=== PATIENT | female | born 1985 | race Caucasian/White ===

== ENCOUNTER 2017-08-17 16:39 | Emergency (ER) | payer MEDICAID ==
[2017-08-17 16:39] VITALS: BMI 25.7
[2017-08-17 16:46] VITALS: BP 118/68; PULSE 83; RESP 16; TEMP 98.4; O2SAT 100
--- NOTE | 2017-08-17 17:51 | RAD ---
PROCEDURE: Right Foot Radiographs. HISTORY: FB, glass in foot COMPARISON: None. FINDINGS: BONES: Bone alignment and mineralization are normal. There is no acute fracture or bone destruction. JOINTS: Normal. SOFT TISSUES: There is mild plantar soft tissue welling in the forefoot. No radiopaque foreign body. OTHER FINDINGS: None. IMPRESSION: No acute fracture or dislocation. Mild plantar soft tissue swelling in the forefoot. No evidence of radiopaque foreign body.
--- NOTE | 2017-08-17 19:03 | ED PDOC ---
Lower Extremity Pain/Injury Time Seen by Provider: 08/17/17 17:04 Chief Complaint (Nursing): Lower Extremity Problem/Injury Chief Complaint (Provider): Right foot pain History Per: Patient History/Exam Limitations: no limitations Onset/Duration Of Symptoms: Days (2) Current Symptoms Are (Timing): Still Present Additional Complaint(s): 32yo female, presents to ER for evaluation of right foot discomfort for the past 2 days. Patient states she broke a piece of glass in her home 2 days ago and thought she cleared everything however for the past two days, every time she attempts to walk she feels a foreign body in her foot. She denies any swelling, drainage from her foot. She has no other complaints. Past Medical History Reviewed: Historical Data, Nursing Documentation, Vital Signs Vital Signs: Last Vital Signs Temp 98.4 F 08/17/17 16:43 Pulse 83 08/17/17 16:43 Resp 16 08/17/17 16:43 BP 118/68 08/17/17 16:43 Pulse Ox 100 08/17/17 16:43 - Medical History PMH: No Chronic Diseases - Surgical History Surgical History: Cholecystectomy, Tonsillectomy - Family History Family History: States: No Known Family Hx - Home Medications Home Medications: Ambulatory Orders Medication Instructions Recorded Oxycodone HCl/Acetaminophen 1 each PO Q6 #10 tablet 08/27/15 [Oxycodone-Acetaminophen 5-325] Cephalexin [cephalexin] 500 mg PO BID #14 cap 08/17/17 - Allergies Allergies/Adverse Reactions: Allergies Allergy/AdvReac Type Severity Reaction Status Date / Time morphine Allergy ITCHING Verified 08/17/17 16:43 Review of Systems ROS Statement: Except As Marked, All Systems Reviewed And Found Negative Musculoskeletal: Positive for: Foot Pain (foreign object in right foot) Physical Exam - Reviewed Nursing Documentation Reviewed: Yes Vital Signs Reviewed: Yes - Physical Exam Appears: Positive for: Non-toxic, No Acute Distress Head Exam: Positive for: ATRAUMATIC, NORMAL INSPECTION, NORMOCEPHALIC Skin: Positive for: Normal Color Eye Exam: Positive for: Normal appearance Neck: Positive for: Supple Cardiovascular/Chest: Positive for: Regular Rate, Rhythm Respiratory: Positive for: Normal Breath Sounds. Negative for: Respiratory Distress Pulses-Dorsalis Pedis (L): 2+ Pulses-Dorsalis Pedis (R): 2+ Extremity: Positive for: Normal ROM, Other (puncture wound noted to right mid- foot on plantar aspect ). Negative for: Tenderness, Deformity, Swelling Neurologic/Psych: Positive for: Alert, Oriented. Negative for: Motor/Sensory Deficits - ECG O2 Sat by Pulse Oximetry: 100 (RA) Pulse Ox Interpretation: Normal Medical Decision Making Medical Decision Making: Impression: Foreign object in right foot Plan: -- XR Right foot -- Podiatry consult Scribe Attestation: Documented by Pao Mckeon acting as a scribe for SHARONA Sharma Provider Scribe Attestation: All medical record entries made by the Scribe were at my direction and personally dictated by me. I have reviewed the chart and agree that the record accurately reflects my personal performance of the history, physical exam, medical decision making, and the department course for this patient. I have also personally directed, reviewed, and agree with the discharge instructions and disposition. Disposition - Clinical Impression Clinical Impression: Foot injury - Patient ED Disposition Is Patient to be Admitted: No Counseled Patient/Family Regarding: Diagnosis, Need For Followup - Disposition Disposition: Routine/Home Disposition Time: 19:21 Condition: GOOD Prescriptions: Cephalexin [cephalexin] 500 mg PO BID #14 cap Instructions: Foreign Body in Skin Forms: Share0 (Lao)
--- NOTE | 2017-08-17 21:42 | CP.PCM.CON ---
History of Present Illness - History of Present Illness History of Present Illness: Podiaty consult note: Dr. Elise 32 year old female patient with no significant PMHx was seen and evaluated at bedside for right plantar foot pain secondary to a presence of a foreign body. Patient reports that she stepped on a broken picture frame glass about a week ago and a little piece of a glass went inside her foot. Patient's reports that he took out a piece of the glass with the tweezers after the injury. Patient reports that the pain at the site of the injury increased recently and decided to come to the ED today. Patient states that she was not able to walk on her foot today because of the increasing pain. Patient denies of taking any pain medications for the pain. Denies of having any recent F/N/V/C /SOB/CP/headache. Denies of having any other pedal complains at this time. PMHx: Denies PSHx: Allergies: Morphine SocialHx: Denies smoking, EtOH or illicit drug usage Review of Systems - Constitutional Constitutional: As Per HPI Past Patient History - Past Social History Smoking Status: Heavy Smoker > 10 Cigarettes Daily - PSYCHIATRIC Hx Substance Use: No - SURGICAL HISTORY Hx Cholecystectomy: Yes Hx Tonsillectomy: Yes - ANESTHESIA Hx Anesthesia: Yes Hx Anesthesia Reactions: No Meds Home Medications: Home Medication List Medication Instructions Recorded Confirmed Type Cephalexin [cephalexin] 500 mg PO BID #14 cap 08/17/17 Rx Allergies/Adverse Reactions: Allergies Allergy/AdvReac Type Severity Reaction Status Date / Time morphine Allergy ITCHING Verified 08/17/17 16:43 Physical Exam - Constitutional Appears: Well, Non-toxic, No Acute Distress - Head Exam Head Exam: ATRAUMATIC - Extremities Exam Additional comments: Right LE focused exam: VASC: DP/PT pulses are palpable 2/4, Cap refill time: < 3 sec to all digits, Temp gradient: warm to cool from proximal to distal, no pitting or non-pitting edema noted DERM: small approx. 0.1 cm x 0.1 cm x <0.1 cm opening noted on the plantar proximal midfoot superior to the central band of plantar fascia, no surrounding erythema, no active drainage, site appears coagulated/healed at the initial inspection, no tunneling, no undermining, no probe to bone, no clinical suspicion of active infection NEURO: Protective sensation grossly intact ORTHO: Pain on palpation of the injury site as well as surrounding the site, no pain on palpation of the plantar medial and lateral calcaneal tubercle - Neurological Exam Neurological exam: Alert, Oriented x3 - Psychiatric Exam Psychiatric exam: Normal Affect, Normal Mood Results - Vital Signs Recent Vital Signs: Last Vital Signs Temp 98.4 F 08/17/17 16:43 Pulse 83 08/17/17 16:43 Resp 16 08/17/17 16:43 BP 118/68 08/17/17 16:43 Pulse Ox 100 08/17/17 19:26 Assessment & Plan - Assessment and Plan (Free Text) Assessment: 32 year old female patient evaluated for right plantar foot pain secondary to a presence of a foreign body. Plan: Patient seen and evaluated Discussed plan with attending Dr. Gosia Mccauley and charts reviewed X-rays of the right foot ordered/reviewed - Soft tissue density appears within normal limit, no foreign body presence noted at the puncture site, no acute body pathology noted Educated patient may need to go to the OR at a later time if unable to remove the foreign body from the site 9 cc of 1% lidocaine with epi used to give a tibial nerve block Sterile technique used to prep the injured site and #15 blade used to debride and remove the foreign body - small spicules (x2) of glass removed from the site Site flushed with sterile saline and dressed using bacitracin, DSD Educated patient keep the area clean and apply a dressing for the next week until healed Rx: Keflex 500 mg x 7 days Educated to follow up in the podiatry clinic Thank you for the podiatry consult and allowing to take part in a patient care - Date & Time Date: 08/17/17 Time: 18:45
== END 2017-08-17 20:05 | disposition home or self-care (01) ==
LOC: H.ER 16:39
DX: M79.5 Residual foreign body in soft tissue (principal); W45.8XXA Other foreign body or object entering through skin, initial encounter; W25.XXXA Contact with sharp glass, initial encounter; F17.210 Nicotine dependence, cigarettes, uncomplicated

== ENCOUNTER 2018-09-19 15:17 | Inpatient (IN) | payer MEDICAID, OTHER ==
[2018-09-19 15:17] VITALS: BMI 25.7
--- NOTE | 2018-09-19 15:58 | ED PDOC ---
HPI: Psych/Substance Abuse Time Seen by Provider: 09/19/18 15:35 Chief Complaint (Nursing): Psychiatric Evaluation Chief Complaint (Provider): Psychiatric Evaluation History Per: Patient History/Exam Limitations: no limitations Onset/Duration Of Symptoms: Days (x1 day) Current Symptoms Are (Timing): Still Present Additional Complaint(s): Patient is a 33 year old female with no past medical history, who presents by EMS for a psychiatric evaluation. Patient attempted to commit suicide on Tuesday (x1 day ago) by snorting and smoking x15 packs of heroine. Patient states she woke up thinking it was still the same day, Tuesday. She states she has tried to kill herself before and the reason was because her kids were taken away from her. After waking up, she called her sister, who called her brother who ended up notifying EMS. Patient reports she did fall, unsure how, but woke up on the ground, she hit her head on the table. she also reports numbness in her legs mos tly left, as if she cannot feel it to put walk. She also has pain to her right forearm and neck. She reports the feel like "throbbing" and that she can "feel it but can't feel it." Pt denies headache, changes in vision, chest pain, abdominal pain, nausea or vomiting. PMD: no provider LMP: current Past Medical History Reviewed: Historical Data, Nursing Documentation, Vital Signs Vital Signs: Last Vital Signs Temp 98.6 F 09/19/18 15:26 Pulse 95 H 09/19/18 15:26 Resp 18 09/19/18 15:26 BP 130/97 H 09/19/18 15:26 Pulse Ox 100 09/19/18 15:26 - Medical History PMH: No Chronic Diseases - Surgical History Surgical History: Cholecystectomy, Tonsillectomy - Family History Family History: States: Unknown Family Hx - Social History Current smoker - smoking cessation education provided: Yes Alcohol: Occasional Drugs: Cocaine, Opiates - Home Medications Home Medications: Ambulatory Orders Medication Instructions Recorded Oxycodone HCl/Acetaminophen 1 each PO Q6 #10 tablet 08/27/15 [Oxycodone-Acetaminophen 5-325] Cephalexin [cephalexin] 500 mg PO BID #14 cap 08/17/17 - Allergies Allergies/Adverse Reactions: Allergies Allergy/AdvReac Type Severity Reaction Status Date / Time morphine Allergy ITCHING Verified 08/17/17 16:43 Review of Systems ROS Statement: Except As Marked, All Systems Reviewed And Found Negative Musculoskeletal: Positive for: Neck Pain, Arm Pain (right forearm ) Neurological: Positive for: Numbness Psych: Positive for: Suicidal ideation Physical Exam - Reviewed Nursing Documentation Reviewed: Yes Vital Signs Reviewed: Yes - Physical Exam Comments: GENERAL APPEARANCE: Patient is awake, alert, oriented x 3, in no acute distress. SKIN: Warm, dry; (-) cyanosis HEAD: (+) laceration to right eyebrow with healing scab and mild swelling, no erythema or drainage, (-) scalp swelling, (-) scalp tenderness. EYES: (-) conjunctival pallor, (-) scleral icterus, (-) nystagmus. ENMT: Mucous membranes moist. Nasal bridge: (-) tenderness. (-) epistaxis. (- ) oral trauma, (-) facial bone tenderness. Ears: (-) fluid, (-) hemotympanum. Airway patent: (-) stridor. NECK: Trachea with (-) deviation, (+) very mild midline C6-C7 cervical tenderness, (+) paracervical tenderness, (-) step-off, (-) limitation on ROM. HEART AND CARDIOVASCULAR: (-) irregularity; (-) murmur, (-) gallop. CHEST AND RESPIRATORY: (-)chest wall tenderness (-)crepitus (-)ecchymosis (-) rales, (-) rhonchi, (-) wheezes; breath sounds equal. ABDOMEN: Soft, (-) distention, (-) tenderness, (-) guarding. BACK: (-) midline tenderness, (+)FROM NEURO AND PSYCH: Mental status as above. EXTREMITIES:pulses +2 of all extremities, capillary refill <2 sec of all extremities , all extremities NVI, Strength 5/5 and Full ROM for RUE, RLE, and LUE. Decreased ROM and strength on LLE. 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 Pupils equal and reactive; EOMI; lockstitch front maker 2-12 intact, (-) facial asymmetry; tongue and uvula midline. Strength and DTRs symmetric - Laboratory Results Result Diagrams: 09/19/18 16:31 09/19/18 16:31 - ECG ECG Rhythm: Positive for: Normal QRS, Normal ST Segment, Sinus Rhythm. Negative for: Atrial Fibrillation, Ventricular Fibrillation, ST/T Changes Rate: 75 O2 Sat by Pulse Oximetry: 100 (RA) Pulse Ox Interpretation: Normal Medical Decision Making Medical Decision Making: Time: 1549 Plan: --CT cervical spine without contrast --CT head without contrast --EKG --acetaminophen --Alcohol serum --CMP --Urine drug screen --ED urine --Urinalysis --CBC with differential --Chest xray 2 views --1:1 observation --Glucose, Blood --Right forearm xray --Left hip xray 4 views Time: 1604 --Patient was seen by Dr. Bertrand, who agrees with assessment and plan. --Dr. Bertrand recommends to add Tylenol, Salicylate, and Heel xray. 18:35 CT and Xray reports/results are back and reviewed by me, no acute fractures, active disease, no intracranial hemorrhage PROCEDURE: Left Hip X-ray Radiographs. HISTORY: fall pain COMPARISON: None. TECHNIQUE: 2 views obtained. FINDINGS: BONES: Normal. No fracture. JOINTS: Normal. SOFT TISSUES: Normal. OTHER FINDINGS: Intrauterine contraceptive device (IUD) identified IMPRESSION: Normal left hip radiographs. PROCEDURE: Radiographs of the left calcaneus/hindfoot. HISTORY: fall pain COMPARISON: None available. TECHNIQUE: Frontal and lateral radiographs of the calcaneus. FINDINGS: No fracture or joint dislocation. No focal lesion. No calcaneal spur. IMPRESSION: Unremarkable radiographs of the left calcaneus /hindfoot. COMPARISON: None available. TECHNIQUE: Frontal and lateral views obtained. 2 views obtained. FINDINGS: BONES: No fracture or destructive lesion. JOINT SPACES: Unremarkable. OTHER FINDINGS: None. IMPRESSION: Unremarkable radiographs of the right forearm. FINDINGS: LUNGS: No active pulmonary disease. PLEURA: No significant pleural effusion identified. No pneumothorax apparent. CARDIOVASCULAR: No aortic atherosclerotic calcification present. Normal cardiac size. No pulmonary vascular congestion. OSSEOUS STRUCTURES: No significant abnormalities. VISUALIZED UPPER ABDOMEN: Normal. OTHER FINDINGS: None. IMPRESSION: No active disease. PROCEDURE: CT HEAD WITHOUT CONTRAST. HISTORY: fall COMPARISON: None available. TECHNIQUE: Axial computed tomography images were obtained through the head/brain without intravenous contrast. Radiation dose: Total exam DLP = 788.36 mGy-cm. This CT exam was performed using one or more of the following dose reduction techniques: Automated exposure control, adjustment of the mA and/or kV according to patient size, and/or use of iterative reconstruction technique. FINDINGS: HEMORRHAGE: No intracranial hemorrhage. BRAIN: No mass effect or edema. No atrophy or chronic microvascular ischemic changes. VENTRICLES: No hydrocephalus. CALVARIUM: Unremarkable. PARANASAL SINUSES: Unremarkable as visualized. No significant inflammatory changes. MASTOID AIR CELLS: Unremarkable as visualized. No inflammatory changes. OTHER FINDINGS: None. IMPRESSION: No acute intracranial pathology identified. CT cervical spine without IV contrast Indication: fall pain Comparison: None available. Technique: Axial computed tomography images were obtained of the cervical spine without the use of intravenous contrast. Coronal and sagittal reformatted images were c reated and reviewed. This CT exam was performed using 1 or more of the following dose reduction tech niques: Automated exposure control, adjustment of the MAA and/or kV according to patient size, and/or use of iterative reconstruction technique. Radiation dose: Total exam DLP = 305.62 mGy-cm. Findings: Straightening of the normal cervical lordosis may be related to muscle spasm or positioning. There is no evidence of acute fracture or subluxation. There is preserved alignment, vertebral body height, intervertebral disc spaces. The prevertebral soft tissues and spinolaminar lines appear intact. The lateral masses are preserved. The dens tip is intact. There is proper alignment of the lateral masses of C1 with the C2 vertebral body. Included portions of the thyroid gland appear unremarkable. Included portions of lung apices appear clear. Impression: Straightening of the normal cervical lordosis may be related to muscle spasm or positioning. No evidence of acute fracture or subluxation. 18:[address] Bertrand, elevated LFTs non emergent follow up, pt for crisis nyla discussed results with pt, states she is currently on her period and has a history of anemia, instructed strict follow up regarding elevated LFTs 20:30 pt to be admitted to psych for Major depressive disorder, Dr Linares. Scribe Attestation: Documented by Sukhwinder Campbell acting as a scribe for Armani Hutton PA-C. Provider Scribe Attestation: All medical record entries made by the Scribe were at my direction and personally dictated by me. I have reviewed the chart and agree that the record accurately reflects my personal performance of the history, physical exam, m edical decision making, and the department course for this patient. I have also personally directed, reviewed, and agree with the discharge instructions and disposition Disposition - Clinical Impression Clinical Impression: Major depressive disorder - Patient ED Disposition Is Patient to be Admitted: Yes Doctor Will See Patient In The: Hospital - Disposition Disposition Time: 20:34 Condition: STABLE - Pt Status Changed To: Hospital Disposition Of: Inpatient - Admit Certification Admit to Inpatient:: After my assessment, the patient will require hospitalization for at least two midnights. This is because of the severity of symptoms shown, intensity of services needed, and/or the medical risk in this patient being treated as an outpatient. - POA Present On Arrival: None Results - Diagnostic Imaging Results Radiology Results Cervical Spine CT 09/19/18 15:48 Impression: Straightening of the normal cervical lordosis may be related to muscle spasm or positioning. No evidence of acute fracture or subluxation. Chest X-Ray 09/19/18 15:48 IMPRESSION: No active disease. Forearm X-Ray 09/19/18 15:48 IMPRESSION: Unremarkable radiographs of the right forearm. Head CT 09/19/18 15:48 IMPRESSION: No acute intracranial pathology identified. Heel X-Ray 09/19/18 16:02 IMPRESSION: Unremarkable radiographs of the left calcaneus /hindfoot. Hip/Pelvis X-Ray 09/19/18 16:02 IMPRESSION: Normal left hip radiographs. - Lab Results Lab Results: 09/19/18 09/19/18 09/19/18 17:32 17:32 16:31 WBC RBC Hgb Hct MCV MCH MCHC RDW Plt Count MPV Neut % (Auto) Lymph % (Auto) [place] % (Auto) Eos % (Auto) Baso % (Auto) Neut # (Auto) Lymph # (Auto) [place] # (Auto) Eos # (Auto) Baso # (Auto) Sodium Potassium Chloride Carbon Dioxide Anion Gap BUN Creatinine Est GFR ( Amer) Est GFR (Non-Af Amer) Random Glucose Calcium Total Bilirubin AST ALT Alkaline Phosphatase Total Protein Albumin Globulin Albumin/Globulin Ratio Urine Color Yellow Urine Clarity Clear Urine pH 6.0 Ur Specific [place] 1.010 Urine Protein Negative Urine Glucose (UA) Neg Urine Ketones Negative Urine Blood Trace Urine Nitrate Negative Urine Bilirubin Negative Urine Urobilinogen 0.2-1.0 Ur Leukocyte Esterase Neg Urine RBC (Auto) 1 Urine Microscopic WBC 1 Ur Squamous Epith Cells 1 Urine Bacteria Rare Salicylates < 1.0 Urine Opiates Screen Positive H Urine Methadone Screen Negative Acetaminophen < 10.0 L Ur Barbiturates Screen Negative Ur Phencyclidine Scrn Negative Ur Amphetamines Screen Negative U Benzodiazepines Scrn Negative U Oth Cocaine Metabols Positive H U Cannabinoids Screen Negative Alcohol, Quantitative 09/19/18 09/19/18 16:31 16:31 WBC 7.5 D RBC 4.00 Hgb 7.6 L Hct 25.8 L MCV 64.5 L D MCH 19.0 L MCHC 29.5 L RDW 19.8 H Plt Count 348 MPV 7.4 Neut % (Auto) 71.7 Lymph % (Auto) 17.5 L [place] % (Auto) 7.4 Eos % (Auto) 2.6 Baso % (Auto) 0.8 Neut # (Auto) 5.4 Lymph # (Auto) 1.3 [place] # (Auto) 0.6 Eos # (Auto) 0.2 Baso # (Auto) 0.1 Sodium 135 Potassium 3.5 L Chloride 101 Carbon Dioxide 27 Anion Gap 11 BUN 17 Creatinine 1.3 H Est GFR ( Amer) 58 Est GFR (Non-Af Amer) 48 Random Glucose 91 Calcium 8.9 Total Bilirubin 0.3 AST 960 H ALT 680 H Alkaline Phosphatase 71 Total Protein 7.7 Albumin 4.3 Globulin 3.4 Albumin/Globulin Ratio 1.3 Urine Color Urine Clarity Urine pH Ur Specific [place] Urine Protein Urine Glucose (UA) Urine Ketones Urine Blood Urine Nitrate Urine Bilirubin Urine Urobilinogen Ur Leukocyte Esterase Urine RBC (Auto) Urine Microscopic WBC Ur Squamous Epith Cells Urine Bacteria Salicylates Urine Opiates Screen Urine Methadone Screen Acetaminophen Ur Barbiturates Screen Ur Phencyclidine Scrn Ur Amphetamines Screen U Benzodiazepines Scrn U Oth Cocaine Metabols U Cannabinoids Screen Alcohol, Quantitative < 10
[2018-09-19 16:49] LABS: ALB/GLOB RATIO 1.3 (1.0-2.1); ALBUMIN 4.3 g/dL (3.5-5.0); ALT/SGPT 680 U/L (9-52); BLOOD UREA NITROGEN 17 mg/dl (7-17); CALCIUM 8.9 mg/dL (8.4-10.2); GFR NON-AFRICAN AMERICAN 48; SALICYLATE < 1.0 mg/dl
[2018-09-19 16:50] LABS: BASO # 0.1 K/uL (0.0-0.2); BASO % 0.8 % (0.0-2.0); EOS # 0.2 K/uL (0.0-0.7); EOS % 2.6 % (0.0-4.0); HEMOGLOBIN 7.6 g/dL (12.0-16.0); LYMPH # 1.3 K/uL (1.0-4.3); LYMPH % 17.5 % (20.0-40.0); MEAN CELL VOLUME 64.5 fl (81.0-99.0); MEAN CORPUSCULAR HGB CONC 29.5 g/dL (33.0-37.0); MEAN PLATELET VOLUME 7.4 fl (7.2-11.7); MONO # 0.6 K/uL (0.0-0.8); MONO % 7.4 % (0.0-10.0); NEUT # 5.4 K/uL (1.8-7.0); NEUT % 71.7 % (50.0-75.0); RED CELL DISTRIBUTION WIDTH 19.8 % (11.5-14.5); WHITE BLOOD COUNT 7.5 K/uL (4.8-10.8)
[2018-09-19 16:56] LABS: AST/SGOT 960 U/L (14-36)
[2018-09-19 17:22] LABS: ACETAMINOPHEN < 10.0 ug/ml (10.0-30.0)
[2018-09-19 17:50] LABS: SQUAMOUS EPITHIAL 1 /hpf (0-5); URINE BACTERIA RARE (<OCC); URINE BILIRUBIN NEGATIVE (NEGATIVE); URINE CLARITY CLEAR (Clear); URINE COLOR YELLOW (YELLOW); URINE GLUCOSE (UA) NEG (NEGATIVE); URINE LEUKOCYTE ESTERASE NEG Leu/uL (Negative); URINE PROTEIN NEGATIVE (NEGATIVE); URINE UROBILINOGEN 0.2-1.0 mg/dL (0.2-1.0)
[2018-09-19 18:04] LABS: URINE BLOOD TRACE (NEGATIVE)
--- NOTE | 2018-09-19 18:14 | CT ---
Date of service: 09/19/2018 PROCEDURE: CT HEAD WITHOUT CONTRAST. HISTORY: fall COMPARISON: None available. TECHNIQUE: Axial computed tomography images were obtained through the head/brain without intravenous contrast. Radiation dose: Total exam DLP = 788.36 mGy-cm. This CT exam was performed using one or more of the following dose reduction techniques: Automated exposure control, adjustment of the mA and/or kV according to patient size, and/or use of iterative reconstruction technique. FINDINGS: HEMORRHAGE: No intracranial hemorrhage. BRAIN: No mass effect or edema. No atrophy or chronic microvascular ischemic changes. VENTRICLES: No hydrocephalus. CALVARIUM: Unremarkable. PARANASAL SINUSES: Unremarkable as visualized. No significant inflammatory changes. MASTOID AIR CELLS: Unremarkable as visualized. No inflammatory changes. OTHER FINDINGS: None. IMPRESSION: No acute intracranial pathology identified.
--- NOTE | 2018-09-19 18:17 | RAD ---
Date of service: 09/19/2018 HISTORY: crisis COMPARISON: No prior. TECHNIQUE: Chest PA and lateral views FINDINGS: LUNGS: No active pulmonary disease. PLEURA: No significant pleural effusion identified. No pneumothorax apparent. CARDIOVASCULAR: No aortic atherosclerotic calcification present. Normal cardiac size. No pulmonary vascular congestion. OSSEOUS STRUCTURES: No significant abnormalities. VISUALIZED UPPER ABDOMEN: Normal. OTHER FINDINGS: None. IMPRESSION: No active disease.
--- NOTE | 2018-09-19 18:17 | RAD ---
PROCEDURE: Radiographs of the Right Forearm HISTORY: fall COMPARISON: None available. TECHNIQUE: Frontal and lateral views obtained. 2 views obtained. FINDINGS: BONES: No fracture or destructive lesion. JOINT SPACES: Unremarkable. OTHER FINDINGS: None. IMPRESSION: Unremarkable radiographs of the right forearm.
--- NOTE | 2018-09-19 18:17 | RAD ---
Date of service: 09/19/2018 PROCEDURE: Radiographs of the left calcaneus/hindfoot. HISTORY: fall pain COMPARISON: None available. TECHNIQUE: Frontal and lateral radiographs of the calcaneus. FINDINGS: No fracture or joint dislocation. No focal lesion. No calcaneal spur. IMPRESSION: Unremarkable radiographs of the left calcaneus /hindfoot.
--- NOTE | 2018-09-19 18:18 | RAD ---
PROCEDURE: Left Hip X-ray Radiographs. HISTORY: fall pain COMPARISON: None. TECHNIQUE: 2 views obtained. FINDINGS: BONES: Normal. No fracture. JOINTS: Normal. SOFT TISSUES: Normal. OTHER FINDINGS: Intrauterine contraceptive device (IUD) identified IMPRESSION: Normal left hip radiographs.
[2018-09-19 18:34] LABS: BARBITURATES, UR NEGATIVE (NEGATIVE); BENZODIAZEPINES, UR NEGATIVE (NEGATIVE); OPIATES, UR POSITIVE (NEGATIVE); PHENCYCLIDINE, UR NEGATIVE (NEGATIVE)
--- NOTE | 2018-09-19 18:38 | CT ---
Date of service: 09/19/2018 CT cervical spine without IV contrast Indication: fall pain Comparison: None available. Technique: Axial computed tomography images were obtained of the cervical spine without the use of intravenous contrast. Coronal and sagittal reformatted images were created and reviewed. This CT exam was performed using 1 or more of the following dose reduction techniques: Automated exposure control, adjustment of the MAA and/or kV according to patient size, and/or use of iterative reconstruction technique. Radiation dose: Total exam DLP = 305.62 mGy-cm. Findings: Straightening of the normal cervical lordosis may be related to muscle spasm or positioning. There is no evidence of acute fracture or subluxation. There is preserved alignment, vertebral body height, intervertebral disc spaces. The prevertebral soft tissues and spinolaminar lines appear intact. The lateral masses are preserved. The dens tip is intact. There is proper alignment of the lateral masses of C1 with the C2 vertebral body. Included portions of the thyroid gland appear unremarkable. Included portions of lung apices appear clear. Impression: Straightening of the normal cervical lordosis may be related to muscle spasm or positioning. No evidence of acute fracture or subluxation.
[2018-09-19] MEDS ORDERED: Tdap Vaccine 0.5 ml Vial (10-64 yrs) IM ONE ×2 (18:39→18:59)
[2018-09-20] MEDS ORDERED: Magnesium Hydroxide Susp 30 ml UD PO PRN (00:32)
[2018-09-20] MEDS ORDERED: Alum-Mag Hydrox-Simethicone Susp (30 mL) PO PRN (00:32)
[2018-09-20] MEDS ORDERED: DiphenhydrAMINE 50 mg/ml Inj IM PRN (00:32)
--- NOTE | 2018-09-20 01:29 | PCM.BM ---
<WinstonAshly C - Last Filed: 09/20/18 01:27> Treatment Plan Problems - Problems identified on initial assessmt Self Harm Date Initiated: 09/20/18 Time Initiated: : Assessment reference: NA Status: Active Suicidal Ideation Date Initiated: 09/20/18 Time Initiated: 01: Assessment reference: NA Status: Active Hopelessness/Helplessness Date Initiated: 09/20/18 Time Initiated: 01:29 Assessment reference: NA Status: Active Ineffective Coping Date Initiated: 09/20/18 Time Initiated: 01:30 Assessment reference: NA Status: Active (Altered Sleep) Altered Sleep Patterns Date Initiated: 09/20/18 Time Initiated: 01:30 Assessment reference: NA Status: Active Treatment assets and liabiliti Patient Assests: adapts well, cooperative, self-reliant, ADL independent, physically healthy, negotiates basic needs Patient Liabilities: live alone, financial problems, poor support system, relationship conflicts, substance abuse - Milieu Protocol Maintain good personal hygiene: daily Encourage regular showers, every shift Remind patient to perform daily oral care, every shift Assist patient to perform ADL's Conduct patient checks and document Observation sheet: Q15 minutes Maintain personal safety: every shift Educate patient to report safety concerns to staff, every shift Monitor environment for contraband/sharps Medication safety: Monitor for expected outcome, potential side effects: every shift, Assess barriers to learning: every shift, Assess readiness for medication education: every shift <Ward Chacon - Last Filed: 09/24/18 13:16> Family Contact Family involvement: Family/SO is involved Family contact: Patient agrees to contact, Family has been contacted by patient, Telephone contact initiated by staff Family contact name: Laly Joya - Mother Family contacted how many times per week?: 2 Family contact comment: Hide Inspector spoke with pt's mother Laly to give her updates on pt's care, discuss medications and referrals for aftercare. Pt's mother feels that pt requires a lengthy hospitalization at this time as she fears pt will be discharged and attempt to kill herself again or use drugs. Hide Inspector explained that pt has a long hx of suicide attempts and at this time pt is forth coming with staff, interacting with peers and compliant with treatment and appears to be managed well on medications. Hide Inspector explained that despite pt having a hx of suicidal behavior without current suicidal thoughts or urges pt is required psych stable. Pt is able to discuss long and short term goals and understands what is necessary for her to continue to stabilize and improve. Depression does not resolve in a week and pt will need to continue to work on her issues and stressors once discharged. - Goals for Treatment Patient goals for treatment: Pt superficially engaged in treatment at this time and does not have specific goals for treatment at this time, yet understands that her depression is severe and overwhelming. Discharge/Continuing Care - Education Needs Education Needs: Family Medication, Family Diagnosis/Disease Process, Family Coping Skills, Family Community resources, Family Aftercare Safety Plan, Patient Medication, Patient Diagnosis/Disease Process, Patient Coping Skills, Patient Community resources, Patient Aftercare Safety Plan - Discharge Discharge Criteria: Tolerates medication w/o severe side effects, Free of Suicidal thoughts, Free of agitation, Ability to care for self, No longer exhibiting s/s of withdrawal, Reduction of target symptoms Discharge to:: Home - Treatment Team Participation Patient/Family/SO Statement: 09/24/18 13:19 Pt seen in treatment team on 09/22/18. Pt reported that her numbness and physical pain is lessened, but did not remark on her mental health. Pt's medications of Seroquel and Neurontin explained. Pt discussed talking to her mother and her mother as a trigger for her depression. Referral to [facility] Steps discussed and pt agreed to rescind her 48 hour notice. Pt denied current SI/HI and AVT hallucinations. Pt was superficially cooperative and her body language was closed. Pt made poor eye contact, often looking away or down at the table. Pt speech was slow, soft, yet pressured and her mood was depressed and her affect was constricted. Pt's psychomotor movements were below normal limits. Discussed with Family/SO: Yes Was Patient/Family/SO present at Treatment Team Meeting: Yes <Ileana Romero - Last Filed: 09/25/18 14:51> - Diagnosis (1) Major depressive disorder Status: Acute Interventions: 09/25/18 14:51 psychotherapy, pharmacotherapy
[2018-09-20 08:47] LABS: HEMOGLOBIN 7.9 g/dL (12.0-16.0); MEAN CELL VOLUME 64.2 fl (81.0-99.0); MEAN CORPUSCULAR HEMOGLOBIN 19.6 pg (27.0-31.0); MEAN CORPUSCULAR HGB CONC 30.5 g/dL (33.0-37.0); RBC 4.04 Mil/uL (3.80-5.20); RED CELL DISTRIBUTION WIDTH 19.9 % (11.5-14.5); WHITE BLOOD COUNT 5.4 K/uL (4.8-10.8)
[2018-09-20] MEDS ORDERED: Pneumococcal 23-Valent Vaccine IM ONE (10:00)
--- NOTE | 2018-09-20 10:05 | CARD ---
APPROVED REPORT Date of service: 09/19/2018 EKG Measurement Heart [id number] <Conclusion> Normal sinus rhythm Normal ECG
[2018-09-20] MEDS ORDERED: Influenza Vaccine 60 mcg/0.5 mL SYR (4YR UP) IM ONE (10:30)
[2018-09-20] MEDS ORDERED: Influenza Vaccine (5 YR UP)/PF 60 MCG/0.5 ML SYR IM ONE (10:30)
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
[2018-09-21 09:19] LABS: ALB/GLOB RATIO 1.2 (1.0-2.1); ALBUMIN 4.1 g/dL (3.5-5.0); BILIRUBIN,DIRECT 0.3 mg/ml (0.0-0.4)
--- NOTE | 2018-09-21 13:23 | PCM.PYCHPN ---
Psychiatric Progress Note - Psychiatric Progress Note Patient seen today, length of contact: pt evaluated discussed with team and chart reviewed Patient Chief Complaint: I have no support at all Problems Identified/Issues Discussed: pt evaluated, continues to present with depressed mood irritable affect, relating that to poor social support , not sure about her current living situation inability to be in touch with her children, discussed with pt gradual increase in dose of seoquel for depression and mood stabilization encouraged to attend groups pt denied any current active thoughts of self harm on the unit, denied perceptual disturbances Medical Problems: multiple hospitalizations, hx of non compliance DSM 5 Symptoms Update: bipolar I disorder cannabis abuse cocaine abuse Medication Change: Yes (increase seroquel) Medical Record Reviewed: Yes Mental Status Examination - Cognitive Function Orientation: Person, Place, Situation Attention: WNL Concentration: WNL Association: WNL Fund of Knowledge: Poor Decription of patient's judgement and insights: partial insight poor judgment - Mood Mood: Depressed, Anxious - Affect Affect: Constricted, Depressed - Speech Speech: Appropriate - Formal Thought Process Formal Thought Process: Circumstantial - Suicidal Ideation Suicidal Ideation: No - Homicidal Ideation Homicidal Ideation: No Goal/Treatment Plan - Goal/Treatment Plan Need for Continued Stay: Severe depression anxiety, Discharge may exacerbated symptoms Progress Toward Problem(s) and Goals/Treatment Plan: clonidine prn and monitor pt for symptoms and signs of opiate withdrawal increase seroquel 200mg qhs increase gradually neurontin 100mg tid internal medicine / neurology consult cbt motivational and group therapy follow up on results of HIV and hepatitis profile requested by patients
[2018-09-21 20:56] LABS: HEPATITIS B SURFACE AG Negative (NEGATIVE)
[2018-09-21 21:02] LABS: HEPATITIS A IGM NEGATIVE (NEGATIVE); HEPATITIS B CORE AB NEGATIVE (NEGATIVE)
[2018-09-21 21:14] LABS: HEPATITIS C ANTIBODY NEGATIVE (NEGATIVE)
--- NOTE | 2018-09-22 11:49 | PCM.PYCHPN ---
Psychiatric Progress Note - Psychiatric Progress Note Patient seen today, length of contact: pt evaluated discussed with team and chart reviewed Patient Chief Complaint: I do not want to be over medicated Problems Identified/Issues Discussed: pt evaluated with treatment team, presenting with anxious mood and irritable affect, pt continues to feel down, relates that to conflict with family and inability to see her children, pt minimizing her substance use and its impact on current mental status , motivational therapy provided, discussed with pt the need to start outpatient [facility]/ [facility] on discharge , discussed increasing seroquel dose gradually, no reported side effects, encouraged pt to attend groups pt denied any current active thoughts of self harm on the unit, denied perceptual disturbances Medical Problems: multiple hospitalizations, hx of non compliance DSM 5 Symptoms Update: bipolar disorder opiate abuse cocaine abuse Medication Change: Yes (increase seroquel) Medical Record Reviewed: Yes Mental Status Examination - Cognitive Function Orientation: Person, Place, Situation Attention: WNL Concentration: WNL Association: WNL Fund of Knowledge: Poor Decription of patient's judgement and insights: partial insight poor judgment - Mood Mood: Depressed, Anxious - Affect Affect: Constricted, Depressed - Speech Speech: Appropriate - Formal Thought Process Formal Thought Process: Circumstantial - Suicidal Ideation Suicidal Ideation: No - Homicidal Ideation Homicidal Ideation: No Goal/Treatment Plan - Goal/Treatment Plan Need for Continued Stay: Severe depression anxiety, Discharge may exacerbated symptoms Progress Toward Problem(s) and Goals/Treatment Plan: clonidine prn and monitor pt for symptoms and signs of opiate withdrawal increase seroquel 300mg qhs increase gradually neurontin 100mg tid cbt motivational and group therapy follow up on results of HIV and hepatitis profile requested by patients
[2018-09-23 08:05] LABS: ALB/GLOB RATIO 1.2 (1.0-2.1); ALBUMIN 3.9 g/dL (3.5-5.0); BILIRUBIN,DIRECT 0.2 mg/ml (0.0-0.4)
--- NOTE | 2018-09-23 09:33 | PCM.PYCHPN ---
Psychiatric Progress Note - Psychiatric Progress Note Patient seen today, length of contact: pt evaluated discussed with team and chart reviewed Patient Chief Complaint: pt has been less depressed and less anxious and denies side effects and denies withdrawl from opiates ..pt denies suicidal ideation .pt remains with poor insight regarding her substance abuse and need further stabilization. Medication Change: Yes (increase seroquel) Medical Record Reviewed: Yes Mental Status Examination - Cognitive Function Orientation: Person, Place, Situation Attention: WNL Concentration: WNL Association: WNL Fund of Knowledge: Poor - Mood Mood: Depressed, Anxious - Affect Affect: Constricted, Depressed - Speech Speech: Appropriate - Formal Thought Process Formal Thought Process: Circumstantial - Suicidal Ideation Suicidal Ideation: No - Homicidal Ideation Homicidal Ideation: No Goal/Treatment Plan - Goal/Treatment Plan Need for Continued Stay: Severe depression anxiety, Discharge may exacerbated symptoms Progress Toward Problem(s) and Goals/Treatment Plan: will continue to stabilize pt with neurontin and seroquel and engage pt in therapy and groups. d/c plans as per dr bolton.
[2018-09-23 18:33] VITALS: RESP 18
--- NOTE | 2018-09-24 13:23 | PCM.PYCHPN ---
Psychiatric Progress Note - Psychiatric Progress Note Patient seen today, length of contact: pt evaluated discussed with team and chart reviewed Patient Chief Complaint: pt reports feeling scared and panicking as she had a nightmare that someone was hurting her sister and mother and woke up with panic attack as if it was real.pt otherwise has been less depressed and denies side effects and denies withdrawl from opiates ..pt denies suicidal ideation .pt remains with poor insight regarding her substance abuse and need further stabilization. Medication Change: Yes (increase seroquel) Medical Record Reviewed: Yes Mental Status Examination - Cognitive Function Orientation: Person, Place, Situation Attention: WNL Concentration: WNL Association: WNL Fund of Knowledge: Poor - Mood Mood: Depressed, Anxious - Affect Affect: Constricted, Depressed - Speech Speech: Appropriate - Formal Thought Process Formal Thought Process: Circumstantial - Suicidal Ideation Suicidal Ideation: No - Homicidal Ideation Homicidal Ideation: No Goal/Treatment Plan - Goal/Treatment Plan Need for Continued Stay: Severe depression anxiety, Discharge may exacerbated symptoms Progress Toward Problem(s) and Goals/Treatment Plan: will continue to stabilize pt with neurontin and seroquel and add minipress 1mg at hs for nightmares and continue to engage pt in therapy and groups. d/c plans as per dr bolton.
[2018-09-24 21:38] VITALS: O2SAT 99
[2018-09-25 10:51] VITALS: TEMP 99.4
--- NOTE | 2018-09-25 14:59 | PCM.PYCHPN ---
Psychiatric Progress Note - Psychiatric Progress Note Patient seen today, length of contact: pt evaluated discussed with team and chart reviewed Patient Chief Complaint: I feel better after talking to my mother Problems Identified/Issues Discussed: pt evaluated , presenting with brighter affect, reported better mood, attending groups and interacting with staff and other patients, no reported current changes in sleep or appetite , no reported side effects of medications , pt in agreement to start outpatient [facility] on discharge denied any current suicidal or homicidal ideation Medical Problems: multiple hospitalizations, hx of non compliance DSM 5 Symptoms Update: bipolar disorder opiate abuse cannabis abuse Medication Change: No Medical Record Reviewed: Yes Mental Status Examination - Cognitive Function Orientation: Person, Place, Situation Attention: WNL Concentration: WNL Association: WNL Fund of Knowledge: Poor - Mood Mood: Depressed, Anxious - Affect Affect: Constricted, Depressed - Speech Speech: Appropriate - Formal Thought Process Formal Thought Process: Circumstantial Psychotic Thoughts and Behaviors: pt denied perceptual disturbances, non elicited - Suicidal Ideation Suicidal Ideation: No - Homicidal Ideation Homicidal Ideation: No Goal/Treatment Plan - Goal/Treatment Plan Need for Continued Stay: Severe depression anxiety, Discharge may exacerbated symptoms Progress Toward Problem(s) and Goals/Treatment Plan: seroquel 300mg qhs neurontin 100mg tid cbt motivational and group therapy
[2018-09-25 21:09] VITALS: BP 137/76; PULSE 89
--- NOTE | 2018-09-26 10:52 | PCM.PYCHDC ---
Mental Status Examination - Mental Status Examination Orientation: Person, Place, Situation Memory: Intact Mood: Neutral Affect: Broad Speech: Appropriate Attention: WNL Concentration: WNL Association: WNL Fund of Knowledge: WNL Formal Thought Process: No Impairment Description of patient's judgement and insight: partial insight poor judgment Psychotic Thoughts and Behaviors: pt denied perceptual disturbances, non elicited Suicidal Ideation: No Current Homicidal Ideation?: No Discharge Summary - Discharge Note Reason for Hospitalization: pt is 33 ys old female with previous diagnosis of bipolar disorder and substance use, brought to ER by EMS after suicidal attempt by over dose on opiates pt reported feeling increasingly depressed in the context of loosing custody of her children, increased conflict with her mother and sister, who terminated her work and asked her to leave the house resulting in being homeless , pt relapsed on cocaine and cannabis, started feeling hopeless and helpless and overdosed on opiates with paln to end her life on the unit, pt continues to report having passive suicidal ideation and that her life is worthless, denied active suicidal plan on the unit, denied perceptual disturbances , showing limited insight into effect of substance use Consultations:: List each consultation separately and include: 1. Reason for request. 2. Findings. 3. Follow-up Summary of Hospital Course include:: 1. Description of specific treatment plan utilized for patients during their course of treatmen. 2. Summarize the time- course for resolution of acute symptoms and/or regressed behaviors. 3. Describe issues identified and worked on during hospitalization. 4. Describe medication utilized. 5. Describe medical problems identified and treated. 6. Reassessment of suicide risk Summary of Hospital Course: pt on admission presented with unstable gait, internal medicine and neurology requested she also presented with depressed mood and irritable affect, pt was started on seroquel, it was uptitrated to 300mg qhs neurontin for anxiety and prazosin for nightmares , motivational group and supportive therapy provided pt participated in treatment attended groups, no reported side effects of medications on discharge mental status was stable, she denied any current suicidal or homicidal ideation, denied perceptual disturbances follow up arranged by older adult social work specialist at [facility] - Diagnosis (1) Major depressive disorder Current Visit: Yes Status: Acute - Final Diagnosis (DSM 5) Condition upon Discharge: STABLE DSM 5: bipolar I disorder cocaine abuse cannabis abuse Disposition: HOME/ ROUTINE Follow-up Treatment Plan: seroquel 300mg qhs neurontin 100mg tid cbt motivational and group therapy Prescriptions/Medication Reconciliation: Gabapentin [Neurontin] 100 mg PO TID 30 Days #90 cap Prazosin HCl [Minipress] 1 mg PO HS 30 Days #30 cap QUEtiapine [SEROquel] 300 mg PO HS 30 Days #30 tab - Antipsychotic Medications Pt discharged on 2 or more routine antipsychotic medications: No
== END 2018-09-26 14:14 | disposition home or self-care (01) | DRG 753 ==
LOC: H.ER 15:17 → H.ERHOLD 20:56 → H.PSYCH 09-20 00:20
PROVIDERS: ADMIT Psychiatry & Neurology Psychiatry; ATTEND Psychiatry & Neurology Psychiatry
PROC: GZ58ZZZ Individual Psychotherapy, Cognitive-Behavioral (ICD-10-PCS; 2018-09-19)
PROC: GZ56ZZZ Individual Psychotherapy, Supportive (ICD-10-PCS; 2018-09-19)
PROC: HZ57ZZZ Individual Psychotherapy for Substance Abuse Treatment, Motivational Enhancement (ICD-10-PCS; 2018-09-19)
PROC: GZHZZZZ Group Psychotherapy (ICD-10-PCS; 2018-09-19)
PROC: 3E02340 Introduction of Influenza Vaccine into Muscle, Percutaneous Approach (ICD-10-PCS; principal; 2018-09-20)
DX: F31.9 Bipolar disorder, unspecified (principal); R45.851 Suicidal ideations; F14.10 Cocaine abuse, uncomplicated; D50.9 Iron deficiency anemia, unspecified; F41.9 Anxiety disorder, unspecified; F17.200 Nicotine dependence, unspecified, uncomplicated; F12.10 Cannabis abuse, uncomplicated; Z59.0 Homelessness; Z63.8 Other specified problems related to primary support group; M25.511 Pain in right shoulder; M25.572 Pain in left ankle and joints of left foot; R74.8 Abnormal levels of other serum enzymes; F51.5 Nightmare disorder; Z23 Encounter for immunization

== ENCOUNTER 2018-10-23 17:23 | Inpatient (IN) | payer MEDICAID ==
[2018-10-23 17:23] VITALS: BMI 25.7
--- NOTE | 2018-10-23 18:21 | ED PDOC ---
HPI: Psych/Substance Abuse Time Seen by Provider: 10/23/18 17:47 Chief Complaint (Nursing): Psychiatric Evaluation Chief Complaint (Provider): Suicidal Ideation History Per: Patient History/Exam Limitations: no limitations Onset/Duration Of Symptoms: Days Suicide/Self Injury Attempted (Context): None Additional Complaint(s): 33 year old female with history of anxiety, depression, anemia presents to ED for suicidal ideation x2 weeks. Patient reports feeling progressively depressed, crying, and an increase in suicidal thoughts. [place] and [place] thinking of [place] but turned around and came to the ER instead. Patient denies any auditory or visual hallucinations, drugs or alcohol. She was hospitalized a month ago for prior psychiatric stabilization. After she was discharged, she stopped taking Seroquel because it made her feel funny but she is taking other psychiatric medications now. PMD: none Past Medical History Reviewed: Historical Data, Nursing Documentation, Vital Signs Vital Signs: Last Vital Signs Temp 98.1 F 10/23/18 17:38 Pulse 76 10/23/18 17:38 Resp 16 10/23/18 17:38 BP 120/73 10/23/18 17:38 Pulse Ox 100 10/23/18 17:38 Primary Care Provider: FAMILY PROVIDER,NO - Medical History PMH: Anemia, Anxiety, Depression Denies: Diabetes, Hepatitis, HIV, HTN, Seizures, Sexually Transmitted Disease - Surgical History Surgical History: Cholecystectomy, Tonsillectomy, (x3) - Family History Family History: States: Unknown Family Hx - Social History Current smoker - smoking cessation education provided: Yes Alcohol: None Drugs: Denies - Home Medications Home Medications: Ambulatory Orders Medication Instructions Recorded Gabapentin [Neurontin] 100 mg PO TID 30 Days #90 cap 09/26/18 Prazosin HCl [Minipress] 1 mg PO HS 30 Days #30 cap 09/26/18 QUEtiapine [SEROquel] 300 mg PO HS 30 Days #30 tab 09/26/18 - Allergies Allergies/Adverse Reactions: Allergies Allergy/AdvReac Type Severity Reaction Status Date / Time morphine Allergy ITCHING Verified 10/23/18 17:38 Review of Systems ROS Statement: Except As Marked, All Systems Reviewed And Found Negative Psych: Positive for: Anxiety, Depression, Suicidal ideation (x2 weeks) Physical Exam - Reviewed Nursing Documentation Reviewed: Yes Vital Signs Reviewed: Yes - Physical Exam Appears: Positive for: Well, No Acute Distress Head Exam: Positive for: ATRAUMATIC, NORMOCEPHALIC Skin: Positive for: Warm, Dry Eye Exam: Positive for: EOMI, PERRL ENT: Negative for: Pharyngeal Erythema, Tonsillar Exudate Neck: Positive for: Painless ROM, Supple Cardiovascular/Chest: Positive for: Regular Rate, Rhythm. Negative for: Murmur Respiratory: Positive for: Normal Breath Sounds. Negative for: Respiratory Distress Gastrointestinal/Abdominal: Positive for: Soft. Negative for: Tenderness Back: Positive for: Normal Inspection. Negative for: Decreased ROM Extremity: Positive for: Normal ROM. Negative for: Deformity Neurological/Psych: Positive for: Awake, Alert, Oriented (x3), Mood/Affect (depressed mood, normal affect), Other (normal thought process and concentration). Negative for: Motor/Sensory Deficits - Laboratory Results Result Diagrams: 10/23/18 18:20 10/25/18 10:20 - ECG O2 Sat by Pulse Oximetry: 100 (RA) Pulse Ox Interpretation: Normal Medical Decision Making Medical Decision Making: Time: 1809 Initial Impression: depression and suicidal ideation Initial Plan: --Labs (CMP, CBC) --U-preg, U-dip --Crisis Evaluation Evaluated by CW who d/w Psych. Pt to be hospitalized for psychiatric stabilization Medically stable for psychiatric admission Scribe Attestation: Documented by Isaac Pickens acting as a scribe for Debbi Watts MD. Provider Scribe Attestation: All medical record entries made by the Scribe were at my direction and personally dictated by me. I have reviewed the chart and agree that the record accurately reflects my personal performance of the history, physical exam, medical decision making, and the department course for this patient. I have also personally directed, reviewed, and agree with the discharge instructions and disposition. Disposition - Clinical Impression Clinical Impression: Major depressive disorder, Borderline personality disorder - Disposition Disposition Time: 19:00 Condition: STABLE - Pt Status Changed To: Hospital Disposition Of: Inpatient - Admit Certification Admit to Inpatient:: After my assessment, the patient will require hospitalization for at least two midnights. This is because of the severity of symptoms shown, intensity of services needed, and/or the medical risk in this patient being treated as an outpatient. - POA Present On Arrival: None
[2018-10-23 18:35] LABS: BASO # 0.1 K/uL (0.0-0.2); BASO % 0.8 % (0.0-2.0); EOS # 0.3 K/uL (0.0-0.7); EOS % 4.6 % (0.0-4.0); HEMOGLOBIN 9.8 g/dL (12.0-16.0); LYMPH # 1.9 K/uL (1.0-4.3); LYMPH % 29.9 % (20.0-40.0); MEAN CELL VOLUME 70.3 fl (81.0-99.0); MEAN CORPUSCULAR HEMOGLOBIN 21.7 pg (27.0-31.0); MEAN CORPUSCULAR HGB CONC 30.8 g/dL (33.0-37.0); MEAN PLATELET VOLUME 7.7 fl (7.2-11.7); MONO # 0.5 K/uL (0.0-0.8); MONO % 7.3 % (0.0-10.0); NEUT # 3.7 K/uL (1.8-7.0); NEUT % 57.4 % (50.0-75.0); RBC 4.53 Mil/uL (3.80-5.20); RED CELL DISTRIBUTION WIDTH 27.2 % (11.5-14.5); WHITE BLOOD COUNT 6.5 K/uL (4.8-10.8)
[2018-10-23 18:46] LABS: ACETAMINOPHEN < 10.0 ug/ml (10.0-30.0); SALICYLATE < 1.0 mg/dl
[2018-10-23 18:49] LABS: ALB/GLOB RATIO 1.3 (1.0-2.1); ALBUMIN 4.7 g/dL (3.5-5.0); ALT/SGPT 144 U/L (9-52); AST/SGOT 658 U/L (14-36); BLOOD UREA NITROGEN 17 mg/dl (7-17); CALCIUM 9.3 mg/dL (8.4-10.2); GFR NON-AFRICAN AMERICAN > 60
[2018-10-23 19:18] LABS: BARBITURATES, UR NEGATIVE (NEGATIVE)
[2018-10-23 19:20] LABS: BENZODIAZEPINES, UR NEGATIVE (NEGATIVE); OPIATES, UR NEGATIVE (NEGATIVE); PHENCYCLIDINE, UR NEGATIVE (NEGATIVE)
[2018-10-24] MEDS ORDERED: DiphenhydrAMINE 50 mg/ml Inj IM PRN (00:25)
[2018-10-24] MEDS ORDERED: Magnesium Hydroxide Susp 30 ml UD PO PRN (00:25)
[2018-10-24] MEDS ORDERED: Alum-Mag Hydrox-Simethicone Susp (30 mL) PO PRN (00:25)
--- NOTE | 2018-10-24 00:39 | PCM.BM ---
<Melissa Martinez P - Last Filed: 10/24/18 00:38> Treatment Plan Problems - Problems identified on initial assessmt Hopelesness/Helplessness Date Initiated: 10/24/18 Time Initiated: 00:38 Assessment reference: NA Status: Active Medication nonadherence Date Initiated: 10/24/18 Time Initiated: 00:39 Assessment reference: NA Status: Active Treatment assets and liabiliti Patient Assests: adapts well, cooperative, self-reliant, ADL independent, physically healthy, negotiates basic needs, cognitively intact Patient Liabilities: relationship conflicts, substance abuse, medical problems - Milieu Protocol Maintain good personal hygiene: daily Remind patient to perform daily oral care, daily Assist patient to perform ADL's, every other day Encourage regular showers Conduct patient checks and document Observation sheet: Q15 minutes Maintain personal safety: every shift Educate patient to report safety concerns to staff, every shift Monitor environment for contraband/sharps Medication safety: Monitor for expected outcome, potential side effects: every shift, Assess barriers to learning: every shift, Assess readiness for medication education: every shift <Ward Chacon J - Last Filed: 10/26/18 08:14> Family Contact Family involvement: Family/SO is involved Family contact: Patient agrees to contact, Family has been contacted by patient, Telephone contact initiated by staff Family contact name: Laly - Mother Family contacted how many times per week?: 1 Family contact comment: [phone] - Goals for Treatment Patient goals for treatment: Pt irritable and apathetic toward treatment. Pt unable to formulate more abstract and specific goals regarding her mental health. Pt lacks insight and often has an external locus of control. Pt's main complaint is that she would like her medication changed as the Seroquel was exacerbating her restless leg syndrome. Discharge/Continuing Care - Education Needs Education Needs: Patient Medication, Patient Diagnosis/Disease Process, Patient Coping Skills, Patient Community resources, Patient Aftercare Safety Plan - Discharge Discharge Criteria: Tolerates medication w/o severe side effects, Free of Suicidal thoughts, Free of agitation, Normal sleep pattern, Ability to care for self, Reduction of target symptoms Discharge to:: Home - Treatment Team Participation Patient/Family/SO Statement: 10/26/18 08:19 Pt was seen in treatment team on 10/25/18. As per pt she is "good." Pt presents as irritable, superficial, guarded, and minimally cooperative. Pt has poor insight and judgment. Pt reported she did comply with outpt services, but that she was never contacted with a therapist or psychiatrist appt following intake. Pt reported she came to the hospital because the Seroquel she was discharged on was making her restless leg syndrome worse. Pt has been started on Abilify. Pt reported that she was talking in her sleep the night before and is concerned that the Abilify has caused this. Pt denied current SI/HI and AVT hallucinations. Pt is oriented X4. Discussed with Family/SO: Yes Was Patient/Family/SO present at Treatment Team Meeting: Yes <Ileana Romero - Last Filed: 10/30/18 14:35> - Diagnosis (1) Borderline personality disorder Status: Acute Interventions: 10/30/18 11:42 psychotherapy
--- NOTE | 2018-10-24 08:32 | RAD ---
Date of service: 10/23/2018 HISTORY: admission COMPARISON: Chest radiographs 09/19/2018. TECHNIQUE: 1 view obtained. FINDINGS: LUNGS: No active pulmonary disease. PLEURA: No significant pleural effusion identified, no pneumothorax apparent. CARDIOVASCULAR: No aortic atherosclerotic calcification present. Normal cardiac size. No pulmonary vascular congestion. OSSEOUS STRUCTURES: No significant abnormalities. VISUALIZED UPPER ABDOMEN: Normal. OTHER FINDINGS: None. IMPRESSION: No interval acute cardiopulmonary disease appreciated.
--- NOTE | 2018-10-24 09:04 | CP.PCM.CON ---
<Carloz Baltazar - Last Filed: 10/24/18 10:36> History of Present Illness - History of Present Illness History of Present Illness: Medicine Consult HPI: 33 y/o female with no significant PMHx (as per pt) admitted to psych for severe depression with suicidal ideation. [facility] but had a change of thought and came to the hospital instead. Reports not taking meds since previous discharge. This morning, pt reports feeling better and currently denies any SI/HI, auditory/visual hallucinations. ROS: all other systems reviewed and negative unless otherwise noted in HPI PMD: denies Meds: denies ALL: morphine (pruritus, SOB) Social: heroin +, denies tobacco, smoker of 2 packs/day Surgical Hx: 3x c/s, gallbladder, tonsils Family Hx: denies Past Patient History - Past Social History Alcohol: None Drugs: Denies - CARDIAC Hx Cardiac Disorders: No - PULMONARY Hx Tuberculosis: No - NEUROLOGICAL Hx Seizures: No - HEENT Hx HEENT Problems: No - RENAL Hx Chronic Kidney Disease: No - ENDOCRINE/METABOLIC Hx Endocrine Disorders: No - HEMATOLOGICAL/ONCOLOGICAL Hx Anemia: Yes Hx Human Immunodeficiency Virus (HIV): No - INTEGUMENTARY Hx Dermatological Problems: No - MUSCULOSKELETAL/RHEUMATOLOGICAL Hx Musculoskeletal Disorders: No - GASTROINTESTINAL Hx Gastrointestinal Disorders: No - GENITOURINARY/GYNECOLOGICAL Hx Sexually Transmitted Disorders: No - PSYCHIATRIC Hx Substance Use: Yes (cocaine) - SURGICAL HISTORY Hx Cholecystectomy: Yes Hx Tonsillectomy: Yes - ANESTHESIA Hx Anesthesia: Yes Hx Anesthesia Reactions: No Hx Malignant Hyperthermia: No Meds Allergies/Adverse Reactions: Allergies Allergy/AdvReac Type Severity Reaction Status Date / Time morphine Allergy ITCHING Verified 10/23/18 17:38 - Medications Medications: Current Medications Acetaminophen (Tylenol 325mg Tab) 650 mg PO Q4 PRN PRN Reason: pain level 4-7 Al Hydrox/Mg Hydrox/Simethicone (Maalox Plus 30 Ml) 30 ml PO Q4 PRN PRN Reason: Dyspepsia Diphenhydramine HCl (Benadryl) 50 mg IM Q6 PRN PRN Reason: Extrapyramidal S/S Unable PO Diphenhydramine HCl (Benadryl) 50 mg PO Q6 PRN PRN Reason: Extrapyramidal Symptoms Diphenhydramine HCl (Benadryl) 50 mg PO HS PRN PRN Reason: Sleep Haloperidol (Haldol) 5 mg PO Q4 PRN PRN Reason: Agitation Haloperidol Lactate (Haldol) 5 mg IM Q4 PRN PRN Reason: Agitation, Unable to Take PO Lorazepam (Ativan) 2 mg IM Q8H PRN PRN Reason: Anxiety/Agitation,Unable PO Lorazepam (Ativan) 1 mg PO Q8H PRN PRN Reason: Anxiety/Agitation Magnesium Hydroxide (Milk Of Magnesia) 30 ml PO HS PRN PRN Reason: Constipation Physical Exam - Constitutional Appears: Non-toxic, No Acute Distress - Head Exam Head Exam: ATRAUMATIC, NORMOCEPHALIC - Eye Exam Eye Exam: EOMI, PERRL - ENT Exam ENT Exam: Mucous Membranes Moist - Respiratory Exam Respiratory Exam: Clear to Auscultation Bilateral, NORMAL BREATHING PATTERN. absent: Rales, Rhonchi, Wheezes - Cardiovascular Exam Cardiovascular Exam: REGULAR RHYTHM, RRR, +S1, +S2. absent: Irregular Rhythm, JVD, Rubs, Systolic Murmur - GI/Abdominal Exam GI & Abdominal Exam: Normal Bowel Sounds, Soft - Extremities Exam Extremities exam: Positive for: normal inspection, pedal pulses present. Negative for: calf tenderness, pedal edema, tenderness - Neurological Exam Neurological exam: Alert, CN II-XII Intact, Normal Gait, Oriented x3 - Psychiatric Exam Psychiatric exam: Flat Affect - Skin Skin Exam: Dry, Intact, Warm Results - Vital Signs Recent Vital Signs: Last Vital Signs Temp 98.4 F 10/24/18 00:25 Pulse 71 10/24/18 01:06 Resp 17 10/24/18 01:06 BP 111/70 10/24/18 00:25 Pulse Ox 98 10/23/18 19:58 - Labs Result Diagrams: 10/23/18 18:20 10/23/18 18:20 Labs: Laboratory Results - last 24 hr 10/23/18 10/23/18 10/23/18 18:20 18:20 18:20 WBC 6.5 RBC 4.53 Hgb 9.8 L Hct 31.9 L MCV 70.3 L D MCH 21.7 L MCHC 30.8 L RDW 27.2 H Plt Count 303 MPV 7.7 Neut % (Auto) 57.4 Lymph % (Auto) 29.9 [place] % (Auto) 7.3 Eos % (Auto) 4.6 H Baso % (Auto) 0.8 Neut # (Auto) 3.7 Lymph # (Auto) 1.9 [place] # (Auto) 0.5 Eos # (Auto) 0.3 Baso # (Auto) 0.1 Sodium 138 Potassium 3.6 Chloride 102 Carbon Dioxide 24 Anion Gap 16 BUN 17 Creatinine 0.9 Est GFR ( Amer) > 60 Est GFR (Non-Af Amer) > 60 Random Glucose 78 Calcium 9.3 Total Bilirubin 0.8 AST 658 H D ALT 144 H D Alkaline Phosphatase 61 Total Protein 8.3 H Albumin 4.7 Globulin 3.6 Albumin/Globulin Ratio 1.3 Salicylates < 1.0 Urine Opiates Screen Urine Methadone Screen Acetaminophen < 10.0 L Ur Barbiturates Screen Ur Phencyclidine Scrn Ur Amphetamines Screen U Benzodiazepines Scrn U Oth Cocaine Metabols U Cannabinoids Screen Alcohol, Quantitative < 10 10/23/18 18:40 WBC RBC Hgb Hct MCV MCH MCHC RDW Plt Count MPV Neut % (Auto) Lymph % (Auto) [place] % (Auto) Eos % (Auto) Baso % (Auto) Neut # (Auto) Lymph # (Auto) [place] # (Auto) Eos # (Auto) Baso # (Auto) Sodium Potassium Chloride Carbon Dioxide Anion Gap BUN Creatinine Est GFR ( Amer) Est GFR (Non-Af Amer) Random Glucose Calcium Total Bilirubin AST ALT Alkaline Phosphatase Total Protein Albumin Globulin Albumin/Globulin Ratio Salicylates Urine Opiates Screen Negative Urine Methadone Screen Negative Acetaminophen Ur Barbiturates Screen Negative Ur Phencyclidine Scrn Negative Ur Amphetamines Screen Negative U Benzodiazepines Scrn Negative U Oth Cocaine Metabols Positive H U Cannabinoids Screen Negative Alcohol, Quantitative Assessment & Plan - Assessment and Plan (Free Text) Assessment: 33 y/o female admitted to psych for severe depression and suicidal ideation. Pt is afebrile and hemodynamically stable. Plan: Suicide attempt/Depression -management as per psych Transaminemia: -on previous admission pt had substantial elevations as well, which trended down without intervention -repeat CMP in AM -avoid hepatotoxic agents -if no improvement w/u for elevated transaminases Anemia - microcytic, chronic -Stable, chronic as per past medical history and improving -Asymptomatic -Ferrous Sulfate PO will continue to follow patient <Dubon,Spenser D - Last Filed: 10/24/18 11:59> Meds - Medications Medications: Current Medications Acetaminophen (Tylenol 325mg Tab) 650 mg PO Q4 PRN PRN Reason: pain level 4-7 Al Hydrox/Mg Hydrox/Simethicone (Maalox Plus 30 Ml) 30 ml PO Q4 PRN PRN Reason: Dyspepsia Diphenhydramine HCl (Benadryl) 50 mg IM Q6 PRN PRN Reason: Extrapyramidal S/S Unable PO Diphenhydramine HCl (Benadryl) 50 mg PO Q6 PRN PRN Reason: Extrapyramidal Symptoms Diphenhydramine HCl (Benadryl) 50 mg PO HS PRN PRN Reason: Sleep Ferrous Sulfate (Feosol) 325 mg PO BID DANI Haloperidol (Haldol) 5 mg PO Q4 PRN PRN Reason: Agitation Haloperidol Lactate (Haldol) 5 mg IM Q4 PRN PRN Reason: Agitation, Unable to Take PO Lorazepam (Ativan) 2 mg IM Q8H PRN PRN Reason: Anxiety/Agitation,Unable PO Lorazepam (Ativan) 1 mg PO Q8H PRN PRN Reason: Anxiety/Agitation Magnesium Hydroxide (Milk Of Magnesia) 30 ml PO HS PRN PRN Reason: Constipation Results - Vital Signs Recent Vital Signs: Last Vital Signs Temp 98.2 F 10/24/18 09:30 Pulse 73 10/24/18 09:30 Resp 17 10/24/18 09:30 BP 127/82 10/24/18 09:30 Pulse Ox 98 10/23/18 19:58 - Labs Result Diagrams: 10/23/18 18:20 10/23/18 18:20 Labs: Laboratory Results - last 24 hr 10/23/18 10/23/18 10/23/18 18:20 18:20 18:20 WBC 6.5 RBC 4.53 Hgb 9.8 L Hct 31.9 L MCV 70.3 L D MCH 21.7 L MCHC 30.8 L RDW 27.2 H Plt Count 303 MPV 7.7 Neut % (Auto) 57.4 Lymph % (Auto) 29.9 [place] % (Auto) 7.3 Eos % (Auto) 4.6 H Baso % (Auto) 0.8 Neut # (Auto) 3.7 Lymph # (Auto) 1.9 [place] # (Auto) 0.5 Eos # (Auto) 0.3 Baso # (Auto) 0.1 Sodium 138 Potassium 3.6 Chloride 102 Carbon Dioxide 24 Anion Gap 16 BUN 17 Creatinine 0.9 Est GFR ( Amer) > 60 Est GFR (Non-Af Amer) > 60 Random Glucose 78 Calcium 9.3 Total Bilirubin 0.8 AST 658 H D ALT 144 H D Alkaline Phosphatase 61 Total Protein 8.3 H Albumin 4.7 Globulin 3.6 Albumin/Globulin Ratio 1.3 Triglycerides Cholesterol LDL Cholesterol Direct HDL Cholesterol Thyroxine (T4) TSH 3rd Generation Salicylates < 1.0 Urine Opiates Screen Urine Methadone Screen Acetaminophen < 10.0 L Ur Barbiturates Screen Ur Phencyclidine Scrn Ur Amphetamines Screen U Benzodiazepines Scrn U Oth Cocaine Metabols U Cannabinoids Screen Alcohol, Quantitative < 10 10/23/18 10/24/18 18:40 08:30 WBC RBC Hgb Hct MCV MCH MCHC RDW Plt Count MPV Neut % (Auto) Lymph % (Auto) [place] % (Auto) Eos % (Auto) Baso % (Auto) Neut # (Auto) Lymph # (Auto) [place] # (Auto) Eos # (Auto) Baso # (Auto) Sodium Potassium Chloride Carbon Dioxide Anion Gap BUN Creatinine Est GFR ( Amer) Est GFR (Non-Af Amer) Random Glucose Calcium Total Bilirubin AST ALT Alkaline Phosphatase Total Protein Albumin Globulin Albumin/Globulin Ratio Triglycerides 79 Cholesterol 169 LDL Cholesterol Direct 92 HDL Cholesterol 48 Thyroxine (T4) 7.72 TSH 3rd Generation 5.33 H Salicylates Urine Opiates Screen Negative Urine Methadone Screen Negative Acetaminophen Ur Barbiturates Screen Negative Ur Phencyclidine Scrn Negative Ur Amphetamines Screen Negative U Benzodiazepines Scrn Negative U Oth Cocaine Metabols Positive H U Cannabinoids Screen Negative Alcohol, Quantitative Attending/Attestation - Attestation I have personally seen and examined this patient.: Yes I have fully participated in the care of the patient.: Yes I have reviewed all pertinent clinical information: Yes Notes (Text): 10/24/18 11:59 Patient seen and examined with resident. Case discussed and agreed with assessment.
--- NOTE | 2018-10-24 10:13 | CARD ---
APPROVED REPORT Date of service: 10/23/2018 EKG Measurement Heart [id number] <Conclusion> Normal sinus rhythm Normal Electrocardiogram
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
[2018-10-25 11:00] LABS: ALB/GLOB RATIO 1.3 (1.0-2.1); ALBUMIN 3.7 g/dL (3.5-5.0); ALT/SGPT 93 U/L (9-52); AST/SGOT 213 U/L (14-36); BLOOD UREA NITROGEN 10 mg/dl (7-17); CALCIUM 8.6 mg/dL (8.4-10.2); GFR NON-AFRICAN AMERICAN > 60
--- NOTE | 2018-10-25 14:53 | PCM.PYCHPN ---
Psychiatric Progress Note - Psychiatric Progress Note Patient seen today, length of contact: pt evaluated discussed with team chart reviewed Patient Chief Complaint: I need help Problems Identified/Issues Discussed: pt evaluated with team, presenting with anxious mood and irritable affect, related her depression to poor support from family and her living situation, motivational therapy provided in refernce to effect of cocaine use on current mental and social status. discussed increasing abilify gradually, pt denied command hallucinations, denied active thoughts of self harm on the unit Medical Problems: multiple hospitalizations, history of non compliance DSM 5 Symptoms Update: bipolar I disorder cocaine abuse Medication Change: Yes (increase abilify) Medical Record Reviewed: Yes Mental Status Examination - Cognitive Function Orientation: Person, Place, Situation Attention: WNL Concentration: WNL Association: WNL Fund of Knowledge: Poor Decription of patient's judgement and insights: partial insight poor judgment - Mood Mood: Depressed, Anxious - Affect Affect: Depressed Additional comments: labile - Speech Speech: Appropriate - Formal Thought Process Formal Thought Process: Circumstantial - Suicidal Ideation Suicidal Ideation: No - Homicidal Ideation Homicidal Ideation: No Goal/Treatment Plan - Goal/Treatment Plan Need for Continued Stay: Severe depression anxiety, Discharge may exacerbated symptoms Progress Toward Problem(s) and Goals/Treatment Plan: neurontin 100mg tid increase abilify 5mg qhs cbt group and supportive therapy
--- NOTE | 2018-10-26 16:40 | PCM.PYCHPN ---
Psychiatric Progress Note - Psychiatric Progress Note Patient seen today, length of contact: pt evaluated discussed with team chart reviewed Patient Chief Complaint: some changes in sleep, mood some what improved, denies nightares, staff report pt rx adherent Problems Identified/Issues Discussed: alteration in coping alteration in mood, alteration in cognition Medical Problems: pt being followed by medical team Diagnostic Results: per psychiatry per medicine per nursing per director of social services per recreational therapy Medication Change: No Medical Record Reviewed: Yes Consults ordered or reviewed: pt being followed by medical team Mental Status Examination - Cognitive Function Orientation: Person, Place, Situation Attention: WNL Concentration: WNL Association: WNL Fund of Knowledge: Poor Decription of patient's judgement and insights: impaired - Mood Mood: Depressed, Anxious - Affect Affect: Depressed - Speech Speech: Appropriate - Formal Thought Process Formal Thought Process: Circumstantial - Suicidal Ideation Suicidal Ideation: No - Homicidal Ideation Homicidal Ideation: No Goal/Treatment Plan - Goal/Treatment Plan Need for Continued Stay: Severe depression anxiety, Discharge may exacerbated symptoms Progress Toward Problem(s) and Goals/Treatment Plan: inpt milieu adjust meds per clinical status prns per clinicals status pt with previous taking of minipress team to reconsider per status in am discharge planning in progress Estimated Date of D/C: 10/31/18 - Smoking Cessation Smoking Cessation Initiated: No Reason for not providing: pt defers
[2018-10-27 15:36] VITALS: O2SAT 100
--- NOTE | 2018-10-27 16:01 | PCM.PYCHPN ---
Psychiatric Progress Note - Psychiatric Progress Note Patient seen today, length of contact: pt evaluated discussed with team chart reviewed Patient Chief Complaint: I still get irritable Problems Identified/Issues Discussed: pt evaluated , continues to present with irritable mood and affect , discussed increasing dose of abilify, encouraged pt to attend groups, , pt denied command hallucinations, denied active thoughts of self harm on the unit Medical Problems: multiple hospitalizations, history of non compliance DSM 5 Symptoms Update: bipolar i disorder cocaine use disorder Medication Change: Yes (increase abilify) Medical Record Reviewed: Yes Mental Status Examination - Cognitive Function Orientation: Person, Place, Situation Attention: WNL Concentration: WNL Association: WNL Fund of Knowledge: Poor - Mood Mood: Depressed, Anxious - Affect Affect: Depressed - Speech Speech: Appropriate - Formal Thought Process Formal Thought Process: Circumstantial - Suicidal Ideation Suicidal Ideation: No - Homicidal Ideation Homicidal Ideation: No Goal/Treatment Plan - Goal/Treatment Plan Need for Continued Stay: Severe depression anxiety, Discharge may exacerbated symptoms Progress Toward Problem(s) and Goals/Treatment Plan: neurontin 100mg tid increase abilify 10mg qhs / cogentin 0.5mg qhs cbt group and supportive therapy Estimated Date of D/C: 10/31/18
--- NOTE | 2018-10-28 15:27 | PCM.PYCHPN ---
Psychiatric Progress Note - Psychiatric Progress Note Patient seen today, length of contact: pt evaluated discussed with team chart reviewed Patient Chief Complaint: seen in unit, staff reports pt treatment adherent. denies concerns side effects current medication. some improvement in sleep. Problems Identified/Issues Discussed: alteration in coping alteration in mood, alteration in cognition Medical Problems: pt being followed by medical team Diagnostic Results: per psychiatry per medicine per nursing per oncology social worker per recreational therapy DSM 5 Symptoms Update: some scant improvement mood irritability sleep Medication Change: No Medical Record Reviewed: Yes Consults ordered or reviewed: pt being followed by medical team Mental Status Examination - Cognitive Function Orientation: Person, Place, Situation Attention: WNL Concentration: WNL Association: WNL Fund of Knowledge: Poor Decription of patient's judgement and insights: impaired - Mood Mood: Depressed, Anxious - Affect Affect: Depressed - Speech Speech: Appropriate - Formal Thought Process Formal Thought Process: Circumstantial - Suicidal Ideation Suicidal Ideation: No - Homicidal Ideation Homicidal Ideation: No Goal/Treatment Plan - Goal/Treatment Plan Need for Continued Stay: Severe depression anxiety, Discharge may exacerbated symptoms Progress Toward Problem(s) and Goals/Treatment Plan: inpt milieu adjust meds per clinical status prns per clinicals status pt with previous taking of minipress team to reconsider per status in am discharge planning in progress Estimated Date of D/C: 10/31/18 - Smoking Cessation Smoking Cessation Initiated: No Reason for not providing: pt defers
[2018-10-29 10:37] VITALS: RESP 18
--- NOTE | 2018-10-29 14:43 | PCM.PYCHPN ---
Psychiatric Progress Note - Psychiatric Progress Note Patient seen today, length of contact: pt evaluated discussed with team chart reviewed Patient Chief Complaint: reports that feels as though abilify makes her feel agitated and irritable, reports in past seroquel help the best but worsed her hx of restless leg syndrome. pt was seen in room later about in unit. staff report pt has been adherent with medications. , Problems Identified/Issues Discussed: alteration in coping alteration in mood, alteration in cognition Medical Problems: pt being followed by medical team Diagnostic Results: per psychiatry per medicine per nursing per director social service per recreational therapy DSM 5 Symptoms Update: ? increased irritability with abilify, past hx of worsening hx of restless leg syndrome with seroquel (although it reportedly helped the best with mood) Medication Change: Yes (stop abilify start risperdal 2mg po hs ) Medical Record Reviewed: Yes Consults ordered or reviewed: pt being followed by medical team Mental Status Examination - Cognitive Function Orientation: Person, Place, Situation Attention: WNL Concentration: WNL Association: WNL Fund of Knowledge: Poor Decription of patient's judgement and insights: impaired - Mood Mood: Depressed, Anxious Additional comments: reported increased irritability feels of - Affect Affect: Depressed - Speech Speech: Appropriate - Formal Thought Process Formal Thought Process: Circumstantial - Suicidal Ideation Suicidal Ideation: No - Homicidal Ideation Homicidal Ideation: No Goal/Treatment Plan - Goal/Treatment Plan Need for Continued Stay: Severe depression anxiety, Discharge may exacerbated symptoms Progress Toward Problem(s) and Goals/Treatment Plan: inpt milieu adjust meds per clinical status prns per clinicals status d/c sharron reported increased feelings of irritability PT REPORTS PREVIOUS IMPROVEMENT IN MOOD WITH SEROQUEL BUT SAID SEROQUEL WORSENED REPORTED HX OF RESTLESS LEG SYNDROME PT DENIES MIGHTMARES will increase gabapentin to 200mg po tid ?adjunct with mood irritability discharge planning in progress Estimated Date of D/C: 10/31/18 - Smoking Cessation Smoking Cessation Initiated: No Reason for not providing: pt defers
[2018-10-30 09:20] VITALS: BP 117/69; PULSE 67; TEMP 98.5
--- NOTE | 2018-10-30 14:40 | PCM.PYCHDC ---
Mental Status Examination - Mental Status Examination Orientation: Person, Place Memory: Intact Mood: Neutral Affect: Broad Speech: Appropriate Attention: WNL Concentration: WNL Association: WNL Fund of Knowledge: WNL Formal Thought Process: No Impairment Description of patient's judgement and insight: partial insight poor judgment Psychotic Thoughts and Behaviors: pt denied psychotic symptoms, non elicited Suicidal Ideation: No Current Homicidal Ideation?: No Discharge Summary - Discharge Note Reason for Hospitalization: pt is 33 ys old female with previous diagnosis of bipolar disorder and cocaine use disorder, presented to ER with suicidal ideation with plan to jump off the bridge pt has not been compliant with medications for past two weeks due to side effects, of medications, became also increasingly depressed in the context of conflict with her mother, pt relapsed on cocaine and started having suicidal ideation on the unit reported depressed with passive suicidal ideation, no active plan on the unit, denied command hallucinations Consultations:: List each consultation separately and include: 1. Reason for request. 2. Findings. 3. Follow-up Summary of Hospital Course include:: 1. Description of specific treatment plan utilized for patients during their course of treatmen. 2. Summarize the time- course for resolution of acute symptoms and/or regressed behaviors. 3. Describe issues identified and worked on during hospitalization. 4. Describe medication utilized. 5. Describe medical problems identified and treated. 6. Reassessment of suicide risk Summary of Hospital Course: pt on admisssion was started on abilify for mood stabilization and depression with partial response , abilify was cross tapered with risperidone motivational group and supportive therapy provided pt was compliant with treatment no reported side effects on discharge mental status was stable pt denied any current suicidal or homicidal ideation denied perceptual disturbances - Diagnosis (1) Borderline personality disorder Current Visit: Yes Status: Acute - Final Diagnosis (DSM 5) Condition upon Discharge: STABLE DSM 5: bipolar I disorder cocaine abuse Disposition: HOME/ ROUTINE Prescriptions/Medication Reconciliation: Benztropine [Cogentin] 0.5 mg PO HS 30 Days #30 tab Ferrous Sulfate [Feosol] 325 mg PO BID 30 Days #60 tab Gabapentin [Neurontin] 200 mg PO TID 30 Days #180 cap risperiDONE [RisperDAL Tab] 2 mg PO HS 30 Days #30 tab - Antipsychotic Medications Pt discharged on 2 or more routine antipsychotic medications: No
== END 2018-10-30 15:14 | disposition home or self-care (01) | DRG 753 ==
LOC: H.ER 17:23 → H.ERHOLD 19:33 → H.PSYCH 10-24 00:21
PROVIDERS: ADMIT Psychiatry & Neurology Psychiatry; ATTEND Psychiatry & Neurology Psychiatry
PROC: GZHZZZZ Group Psychotherapy (ICD-10-PCS; principal; 2018-10-23)
PROC: GZ58ZZZ Individual Psychotherapy, Cognitive-Behavioral (ICD-10-PCS; 2018-10-23)
PROC: GZ56ZZZ Individual Psychotherapy, Supportive (ICD-10-PCS; 2018-10-23)
PROC: HZ57ZZZ Individual Psychotherapy for Substance Abuse Treatment, Motivational Enhancement (ICD-10-PCS; 2018-10-23)
DX: F31.30 Bipolar disorder, current episode depressed, mild or moderate severity, unspecified (principal); R45.851 Suicidal ideations; Z91.14 Patient's other noncompliance with medication regimen; G25.81 Restless legs syndrome; F14.10 Cocaine abuse, uncomplicated; Z88.5 Allergy status to narcotic agent; F17.200 Nicotine dependence, unspecified, uncomplicated; F60.3 Borderline personality disorder